=== PATIENT | female | born 1990 | race Caucasian/White ===

== ENCOUNTER 2016-08-16 09:31 | Emergency (ER) | payer OTHER ==
[2016-08-16] MEDS ORDERED: ACETAMINOPHEN 500 MG TABLET ONE (09:52)
--- NOTE | 2016-08-16 11:24 | RAD ---
Clinical Indication: Injury to shoulder at work yesterday. Patient is unable to raise arm. Comparison: None. Findings: Three views of the left shoulder. Bones: No fracture or dislocation. Joints: Unremarkable. Soft tissue: Normal. Limited evaluation of the left hemithorax: Unremarkable. Impression: No fracture or dislocation.
--- NOTE | 2016-08-16 11:24 | US ---
DUPLX SCAN VEIN EXT UNI LT HISTORY: Left arm pain. COMPARISONS: None FINDINGS: Local grayscale, color-flow and duplex Doppler images during left upper extremity DVT ultrasound are obtained. Study is somewhat limited as patient was unable to raise arm. There is compressibility, phasicity and augmentation seen throughout the deep venous system. There is no deep vein thrombosis. Technologist notation states area of pain is along the dorsal aspect of the left shoulder. IMPRESSION: Negative examination. Findings were called to the emergency department at approximately 1120 hours on 08/16/2016.
== END 2016-08-16 12:06 | disposition home or self-care (01) ==
LOC: ED 09:31
DX: R10.2 Pelvic and perineal pain (principal); M54.5 Low back pain; R35.0 Frequency of micturition
CPT/HCPCS: 73030; 99283 ×2; 93971; A9270